=== PATIENT | female | born 1960 | race Caucasian/White ===

== ENCOUNTER 2017-02-02 23:30 | Emergency (ER) | payer OTHER ==
[2017-02-03 01:44] LABS: CALCIUM 8.3 mg/dL (8.5-10.1); CHLORIDE SERUM 104 mmol/L (98-107); CREATININE SERUM 0.8 mg/dL (0.6-1.0); GFR1 > 60 mL/min; GLUCOSE SERUM 103 mg/dL (74-106); POTASSIUM SERUM 3.3 mmol/L (3.5-5.1); SODIUM SERUM 137 mmol/L (136-145)
[2017-02-03 01:45] LABS: PLATELET COUNT 246 x10^3mcL (130-400)
[2017-02-03 01:49] LABS: ALBUMIN 3.7 g/dL (3.4-5.0); ALKALINE PHOSPHATASE 97 U/L (46-116); ALT/SGPT 63 U/L (14-59); AST/SGOT 41 U/L (15-37); BILIRUBIN TOTAL 0.37 mg/dL (0.20-1.00); LIPASE 109 IU/L (73-393); TOTAL PROTEIN, SERUM 7.7 g/dL (6.4-8.2)
[2017-02-03 03:20] VITALS: BP 133/75
== END 2017-02-03 04:23 | disposition home or self-care (01) ==
LOC: ED 23:30
PROVIDERS: Emergency Medicine
DX: R10.9 Unspecified abdominal pain (principal)
CPT/HCPCS: J7030

== ENCOUNTER 2017-10-22 20:31 | Emergency (ER) | payer OTHER ==
[~2017-10-22] VITALS: Ht 162.6 cm; Wt 83.5 kg
[2017-10-22 20:47] VITALS: Ht 162.6 cm; Wt 83.5 kg
[2017-10-22 22:57] VITALS: BP 125/76
== END 2017-10-22 22:57 | disposition home or self-care (01) ==
LOC: ED 20:31
DX: N39.0 Urinary tract infection, site not specified (principal)

== ENCOUNTER 2019-02-05 22:33 | Emergency (ER) | payer OTHER ==
[~2019-02-05] VITALS: Ht 162.6 cm; Wt 81.2 kg
[2019-02-05 23:20] LABS: BASOPHIL % 0.1 % (0-2); PLATELET COUNT 215 x10^3mcL (130-400); RED CELL DISTRIBUTION WIDTH 13.3 % (11.5-14.5)
[2019-02-05 23:31] LABS: CALCIUM 8.4 mg/dL (8.5-10.1); CARBON DIOXIDE 29.1 mmol/L (21-32); CREATININE SERUM 1.1 mg/dL (0.6-1.0); POTASSIUM SERUM 3.6 mmol/L (3.5-5.1)
[2019-02-05 23:35] LABS: ALBUMIN 3.6 g/dL (3.4-5.0); BILIRUBIN TOTAL 0.5 mg/dL (0.20-1.00)
[2019-02-06 01:08] VITALS: BP 133/69
== END 2019-02-06 00:55 | disposition home or self-care (01) ==
LOC: ED 22:33
PROVIDERS: Emergency Medicine
DX: N39.0 Urinary tract infection, site not specified (principal); R33.9 Retention of urine, unspecified; Z87.442 Personal history of urinary calculi
CPT/HCPCS: 87046; 87046-59; J2060; J2405; J7030